=== PATIENT | female | born 1945 | race Hispanic/Latino ===

== ENCOUNTER 2019-05-12 15:18 | Emergency (ER) | payer MEDICARE, OTHER ==
[~2019-05-12] VITALS: Ht 152.4 cm; Wt 70.0 kg
[2019-05-12] MEDS ORDERED: MECLIZINE25 MG PO (15:43)
[2019-05-12] MEDS ORDERED: CALCI10 PO (15:43)
[2019-05-12 16:45] LABS: HEMATOCRIT 36.9 % (37.0-47.0); HEMOGLOBIN 11.8 g/dl (12.0-16.0); IMMATURE GRANULOCYTES 0.6 % (0.0-5.0); MEAN CELL VOLUME 91.1 fL CALC (80.0-100.0); MEAN CORPUSCULAR HGB 29.1 pG CALC (26.0-32.0); NEUT# 4.63 thou/uL (2.00-7.15); RED BLOOD COUNT 4.05 mill/uL (4.20-5.60); RED CELL DISTRI WIDTH 14.9 % (11.5-15.5)
[2019-05-12 17:07] LABS: ALBUMIN 3.7 g/dL (3.2-5.0); ALKALINE PHOSPHATASE 74 u/l (38-126); ANION GAP 9 (6-22 (CALC)); BILIRUBIN, TOTAL 0.3 mg/dL (0.0-1.4); BUN 18 mg/dL (8-23); BUN/CREATININE RATIO 20 (12-20 (CALC)); CARBON DIOXIDE 27 mmol/l (22-30); CHLORIDE 109 mmol/l (95-108); CREATININE 0.9 mg/dL (0.5-1.0); GFR > 60 ML/MIN (>=60 (CALC)); GFR FOR AFR.AMER. > 60 ML/MIN (>=60 (CALC)); POTASSIUM 3.8 mmol/l (3.5-5.1); SGOT/AST 25 u/l (9-36); SODIUM 142 mmol/l (137-146); TOTAL PROTEIN 6.6 g/dL (6.3-8.2)
[2019-05-12] MEDS ORDERED: RANITIDINE300 MG PO (17:20)
[2019-05-12 17:21] LABS: URINE BILIRUBIN - DIPSTICK NEGATIVE (NEGATIVE); URINE BLOOD DIPSTICK NEGATIVE (NEGATIVE); URINE COLOR YELLOW; URINE GLUCOSE - DIPSTICK NEGATIVE (NEGATIVE); URINE KETONE NEGATIVE (NEGATIVE); URINE LEUK ESTERASE NEGATIVE (NEGATIVE); URINE NITRITE - DIPSTICK NEGATIVE (Negative); URINE PH 5.5 (4.5-8.0); URINE PROTEIN - DIPSTICK NEGATIVE (NEG-TRACE); URINE SPECIFIC GRAVITY 1.025; URINE UROBILINOGEN - DIPSTICK 0.2 E.U./dL (0.2)
[2019-05-12] MEDS ORDERED: BACLOFEN10 MG PO (17:21)
[2019-05-12] MEDS ORDERED: GABAPENTIN600 MG PO (17:22)
[2019-05-12] MEDS ORDERED: NORVASC5 M1 PO (17:22)
[2019-05-12] MEDS ORDERED: MULTIVITAMI9 PO (17:23)
[2019-05-12 17:25] LABS: BARBITURATES NEGATIVE (NEGATIVE); COCAINE NEGATIVE (NEGATIVE); METHADONE NEGATIVE (NEGATIVE); OXCYCODONE NEGATIVE (NEGATIVE); TETRAHYDROCANNABIONOL NEGATIVE (NEGATIVE); TRICYLIC ANTIDEPRESSANTS NEGATIVE (NEGATIVE)
[2019-05-12] MEDS ORDERED: TORADOL PO (18:21)
[2019-05-12] MEDS ORDERED: MEDDOSEPAK PO (18:21)
[2019-05-12 18:35] VITALS: BP 121/64
== END 2019-05-12 18:35 | disposition home or self-care (01) ==
LOC: ED 15:18
PROVIDERS: Emergency Medicine
DX: G89.29 Other chronic pain (principal); M25.552 Pain in left hip; R50.9 Fever, unspecified; I10 Essential (primary) hypertension; Z95.0 Presence of cardiac pacemaker